=== PATIENT | male | born 1980 | race Caucasian/White ===

== ENCOUNTER 2017-01-05 10:05 | Emergency (ER) | payer OTHER ==
[2017-01-05] MEDS ORDERED: DEXAMETHASONE 4 MG TABLET ONE (10:56)
[2017-01-05] MEDS ORDERED: ACETAMINOPHEN 325 MG TABLET ONE (10:56)
== END 2017-01-05 11:09 | disposition home or self-care (01) ==
LOC: ED 10:05
DX: M54.2 Cervicalgia (principal)
CPT/HCPCS: 99283 ×2; A9270 ×2